=== PATIENT | female | born 1950 | race Two or more races ===

== ENCOUNTER 2025-02-12 18:02 | Emergency (ER) | payer OTHER ==
[~2025-02-12] VITALS: Ht 160 cm; Wt 59.9 kg
[2025-02-12 18:17] VITALS: TEMP 98
[2025-02-12 18:53] LABS: PLATELET COUNT (AUTO) 275 K/uL (150-450); RED BLOOD CELL COUNT(AUTO) 3.78 MIL/uL (4.0-5.2); RED CELL DISTRIBUTION WIDTH 13.6 % (11.5-15.0); WHITE BLOOD COUNT (AUTO) 7.3 K/uL (4.3-11.0)
[2025-02-12 19:17] LABS: CALCIUM, SERUM 8.7 mg/dL (8.5-10.1); CREATININE 0.5 mg/dL (0.6-1.3); SODIUM SERUM 146 mmol/L (136-145); UREA NITROGEN, BLOOD 15 mg/dL (7-18)
[2025-02-12 19:28] LABS: NT-PRO BNP 91 pg/mL (0-125)
[2025-02-12] MEDS ORDERED: ACETAMINOPHEN ES 500 MG TABLET ONE (21:08)
[2025-02-12] MEDS: ACETAMINOPHEN ES 500 MG TABLET PO ONE (21:08)
[2025-02-12 21:15] VITALS: BP 121/70; O2SAT 97
[2025-02-12] MEDS ORDERED: FAMO20TA8 PO (21:42)
[2025-02-12] MEDS ORDERED: ACET325T53 PO (21:42)
[2025-02-12] MEDS ORDERED: LIDO30AD10 TP (21:53)
[2025-02-12] MEDS ORDERED: MELO-105 PO (21:53)
== END 2025-02-12 22:00 | disposition home or self-care (01) ==
LOC: ER 18:22
DX: R07.89 Other chest pain (principal); M25.512 Pain in left shoulder; R06.02 Shortness of breath; E11.9 Type 2 diabetes mellitus without complications; Z88.6 Allergy status to analgesic agent
CPT/HCPCS: 36415; 71045-TC; 80048-TC; 83880; 84484-TC; 85025-TC